=== PATIENT | female | born 1965 | race Caucasian/White ===

== ENCOUNTER → 2016-11-01 | Day surgery (SDC) | payer BC ==
[~2016-11-01] VITALS: Ht 167.6 cm; Wt 64.8 kg
[~2016-11-01] MED LIST: BACITRACIN PWD 50,000 UNITS VIAL As Ordered ONE; BSS with VANC/TOB/EPI for EYE CASES IR ONE; D5W/0.2% SODIUM CHLORIDE 250 ML IV SCH; FISH1000 PO; LACTATED RINGER'S 1000 ML IV ONE; LIDOCAINE 2% W/EPIN INJ 20ML **PRES FREE As Ordered ONE; LIDOCAINE 2% W/EPIN INJ 20ML **PRES FREE XX ONE; LIDOCAINE 4% INJ 5 ML AMP OU ONE; LIDOCAINE 4% INJ 5 ML AMP XX ONE; LISI10TA4 PO; LR 1,000 ML IV SCH; MIDAZOLAM INJ 2 MG/2 ML VIAL (J2250) As Ordered ONE; MULT1TAB10 PO; OFLOXACIN 0.3 % (OCUFLOX) OPTH SOL 5ML XX ONE; ONDANSETRON 4MG/2ML VIAL (J2405) IV PRN; PERCOCET 5MG/325MG TAB PO PRN; POVIDONE-IODINE 5% OPHTH PREP SOL 30ML As Ordered ONE; TOBRADEX OPHTH OINT 3.5 GM As Ordered ONE; TOBRADEX OPHTH OINT 3.5 GM XX ONE; fentaNYL 100 MCG/2 ML INJECTION (J3010) As Ordered ONE; fentaNYL 100 MCG/2 ML INJECTION (J3010) IV PRN; mitoMYcin (FOR OPHTHALMIC USE) 0.3MG/1ML SYRINGE IN NaCl (J7999) As Ordered ONE; mitoMYcin (FOR OPHTHALMIC USE) 0.3MG/1ML SYRINGE IN NaCl (J7999) XX ONE
[2016-11-01 09:20] VITALS: BP 132/72
--- NOTE | 2016-11-01 11:54 | RO ---
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 PROCEDURE: Removal of the corneal and conjunctival fibrovascular growth with Mitomycin C and amniotic membrane grafting. SURGEON: Dr. Agosto PODIATRIC MEDICINE DOCTOR: None. ANESTHESIA: General. COMPLICATIONS: None. DESCRIPTION OF OPERATION: : The patient was brought to the operating room and laid in supine position. The eye was prepped and draped in a sterile fashion for ophthalmic surgery after which a lid speculum was placed. Subconjunctival injection of 2% lidocaine with 1:100,000 epinephrine was then given in the subconjunctival space. About five clock hours of the corneal conjunctival fibrovascular growth was then excised just like a pterygium from the outside towards the center of the cornea. The remaining corneal scarring as scraped using the [place] blade. After hemostasis was obtained, Mitomycin 0.1 mg percent was then placed on the skull bed for about 90 seconds followed by copious irrigation with balanced salt solution. Amniotic membrane was then glued in place with Tisseel glue. TobraDex ointment was applied, eye was patched, and patient was returned to the recovery room in stable condition.
== END | disposition home or self-care (01) ==
LOC: M SDC 06:02
PROVIDERS: ATTEND Ophthalmology
DX: H16.401 Unspecified corneal neovascularization, right eye (principal); I10 Essential (primary) hypertension; L30.9 Dermatitis, unspecified; F17.290 Nicotine dependence, other tobacco product, uncomplicated; Z88.0 Allergy status to penicillin; Z79.899 Other long term (current) drug therapy; Z78.0 Asymptomatic menopausal state
CPT/HCPCS: 65778; 88304; A6024; C1762; J2250; J3010; J7999

== ENCOUNTER → 2017-01-12 | Outpatient (REF) | payer BC ==
[~2017-01-12] MED LIST changes: -BACITRACIN PWD 50,000 UNITS VIAL As Ordered ONE; -BSS with VANC/TOB/EPI for EYE CASES IR ONE; -D5W/0.2% SODIUM CHLORIDE 250 ML IV SCH; -LACTATED RINGER'S 1000 ML IV ONE; -LIDOCAINE 2% W/EPIN INJ 20ML **PRES FREE As Ordered ONE; -LIDOCAINE 2% W/EPIN INJ 20ML **PRES FREE XX ONE; -LIDOCAINE 4% INJ 5 ML AMP OU ONE; -LIDOCAINE 4% INJ 5 ML AMP XX ONE; -LR 1,000 ML IV SCH; -MIDAZOLAM INJ 2 MG/2 ML VIAL (J2250) As Ordered ONE; -OFLOXACIN 0.3 % (OCUFLOX) OPTH SOL 5ML XX ONE; -ONDANSETRON 4MG/2ML VIAL (J2405) IV PRN; -PERCOCET 5MG/325MG TAB PO PRN; -POVIDONE-IODINE 5% OPHTH PREP SOL 30ML As Ordered ONE; -TOBRADEX OPHTH OINT 3.5 GM As Ordered ONE; -TOBRADEX OPHTH OINT 3.5 GM XX ONE; -fentaNYL 100 MCG/2 ML INJECTION (J3010) As Ordered ONE; -fentaNYL 100 MCG/2 ML INJECTION (J3010) IV PRN; -mitoMYcin (FOR OPHTHALMIC USE) 0.3MG/1ML SYRINGE IN NaCl (J7999) As Ordered ONE; -mitoMYcin (FOR OPHTHALMIC USE) 0.3MG/1ML SYRINGE IN NaCl (J7999) XX ONE
== END ==
LOC: M SFHCWAGY 09:13
PROVIDERS: ATTEND Nurse Practitioner Women's Health
DX: Z12.4 Encounter for screening for malignant neoplasm of cervix (principal)

== ENCOUNTER → 2017-01-12 | Outpatient (CLI) | payer BC ==
--- NOTE | 2017-01-12 11:23 | REPMRS ---
Patient History The patient states she had a clinical breast exam in 01/2017. Patient is postmenopausal and had first child at age 38. Family history of pancreatic cancer in mother at age 74. Digital Woman Screen Mammo: January 12, 2017 - Exam #: [id number] Bilateral CC and MLO view(s) were taken. Technologist: Almaz Hernandez, Technologist Prior study comparison: December 15, 2015, digital woman screen mammo performed at [facility]. December 23, 2014, left breast digital mammo diagnostic unilateral, performed at [facility]. FINDINGS: There are scattered fibroglandular densities. There has been no change in the appearance of the mammogram from the prior studies. There is a mild amount of residual fibroglandular tissue which is fairly symmetric. There is no interval development of dominant mass, architectural distortion, or clustered microcalcification suggestive of malignancy. ASSESSMENT: BI-RADS/ACR category 1 mammogram. Negative. Recommendation Routine screening mammogram in 1 year (for women over age 40). This mammogram was interpreted with the aid of an FDA-approved computer-aided dectection system. Electronically Signed By: Balaji Blanco MD 01/12/17 1121
== END ==
LOC: M WHC 09:11
PROVIDERS: ATTEND Nurse Practitioner Women's Health
DX: Z12.31 Encounter for screening mammogram for malignant neoplasm of breast (principal); Z78.0 Asymptomatic menopausal state

== ENCOUNTER 2018-05-17 07:57 | Day surgery (SDC) | payer BC ==
[~2018-05-17 07:57] MED LIST changes: +ACETAMINOPHEN 325 MG TAB PO; -FISH1000 PO; -LISI10TA4 PO; -MULT1TAB10 PO
[2018-05-17] MEDS ORDERED: TROPICAMIDE 1% OPHTH SOLN 2ML As Ordered (08:45)
[2018-05-17] MEDS ORDERED: OFLOXACIN 0.3 % (OCUFLOX) OPTH SOL 5ML As Ordered (08:45)
[2018-05-17] MEDS ORDERED: CYCLOPENTOLATE 2% OPHTH SOLN 2ML BTL As Ordered (08:46)
[2018-05-17] MEDS ORDERED: PHENYLEPHRINE 2.5% OPHTH SOL 2ML As Ordered (08:46)
[2018-05-17] MEDS: OFLOXACIN 0.3 % (OCUFLOX) OPTH SOL 5ML OS (09:06)
[2018-05-17] MEDS: PHENYLEPHRINE 2.5% OPHTH SOL 2ML OS (09:07)
[2018-05-17] MEDS: TROPICAMIDE 1% OPHTH SOLN 2ML OS (09:07)
[2018-05-17] MEDS: CYCLOPENTOLATE 2% OPHTH SOLN 2ML BTL OS (09:07)
[2018-05-17] MEDS: LIDOCAINE 3.5 % 1ML OPHTH TOPICAL GEL OU (09:07)
[2018-05-17] MEDS ORDERED: MIDAZOLAM INJ 2 MG/2 ML VIAL (J2250) As Ordered (11:07)
[2018-05-17] MEDS ORDERED: fentaNYL 100 MCG/2 ML INJECTION (J3010) As Ordered (11:07)
[2018-05-17] MEDS: HEALON DUET (HEALON 10MG/ML 0.55ML & HEALON ENDOCOAT 30MG/ML 0.85ML) As Ordered (11:11)
[2018-05-17] MEDS: MOXIFLOXACIN IN BSS 0.25MG/0.25ML INTRACAMERAL INJ (OR EYE ONLY)(J2280) As Ordered (11:11)
[2018-05-17] MEDS: TRIAMCINOLONE PRES FR 40 MG/ML 1ML(TRIESENCE)(OR EYE ONLY)(J3300 PER 1MG) As Ordered (11:11)
[2018-05-17] MEDS: BSS with VANC/TOB/EPI for EYE CASES IR (11:11)
[2018-05-17] MEDS: POVIDONE-IODINE 5% OPHTH PREP SOL 30ML As Ordered (11:11)
[2018-05-17] MEDS: LIDOCAINE 1% SDV 5 ML VIAL As Ordered (11:11)
[2018-05-17] MEDS: PHENYLEPHRINE HCL 10 % OPHTH. SOL 5ML OS (11:12)
[2018-05-17] MEDS: AcetaZOLAMIDE 500 MG ER CAP PO (11:59)
[2018-05-17] MEDS ORDERED: ONDANSETRON 4MG/2ML VIAL (J2405) IV (12:00)
[2018-05-17] MEDS ORDERED: TRIMETHOBENZAMIDE 300 MG CAP PO (12:00)
== END 2018-05-17 12:17 | disposition home or self-care (01) ==
LOC: M SDC 07:57
DX: H25.9 Unspecified age-related cataract (principal); I10 Essential (primary) hypertension; F17.210 Nicotine dependence, cigarettes, uncomplicated; Z79.899 Other long term (current) drug therapy; Z88.0 Allergy status to penicillin
CPT/HCPCS: 66984

== ENCOUNTER → 2018-06-13 | Outpatient (CLI) | payer BC | LOC: M WHC 14:26 | DX: Z12.31 Encounter for screening mammogram for malignant neoplasm of breast (principal) | CPT/HCPCS: 77067 ==

== ENCOUNTER 2018-09-26 07:40 | Emergency (ER) | payer BC ==
[~2018-09-26] VITALS: Ht 165.1 cm; Wt 63.4 kg
[~2018-09-26 07:40] MED LIST changes: -ACETAMINOPHEN 325 MG TAB PO; +FISH1000 PO; +FISH5CAP PO; +LISI10TA4 PO; +MULT1TAB10 PO
[2018-09-26] MEDS ORDERED: PEPT262T2 PO (07:51)
[2018-09-26] MEDS ORDERED: IBUP-1114 PO (07:51)
[2018-09-26] MEDS ORDERED: ASPIRIN 81 MG CHEW TABLET PO ONE (08:15)
[2018-09-26] MEDS ORDERED: METOPROLOL TART 25 MG TABLET PO ONE (08:15)
[2018-09-26] MEDS: NITROGLYCERIN 0.4 MG SUBL TABLET SL PRN ×2 (08:20→08:48)
[2018-09-26 08:23] LABS: BASO # 0.1 10^3/uL (0.0-0.2); BASO % 0.3 % (0.0-1.0); EOS % 0.1 % (0.0-3.0); HEMATOCRIT 45.2 % (36.0-47.0); HEMOGLOBIN 15.1 g/dl (12.0-15.5); MEAN CORPUSCULAR HEMOGLOBIN 30.4 pg (27.0-33.0); MEAN CORPUSCULAR HGB CONC 33.4 g/dl (32.0-36.5); MEAN CORPUSCULAR VOLUME 91.1 fl (80.0-96.0); MONO # 0.8 10^3/uL (0.0-0.8); MONO % 5.2 % (0.0-5.0); NEUTROPHILS # 12.5 10^3/uL (1.8-7.7); NEUTROPHILS % 80.8 % (36.0-66.0); PLATELET COUNT, AUTOMATED 279 10^3/uL (150-450); RED BLOOD COUNT 4.96 10^6/uL (4.00-5.40); WHITE BLOOD COUNT 15.5 10^3/uL (4.0-10.0)
--- NOTE | 2018-09-26 08:46 | REP ---
Portable chest x-ray: Single view. History: Chest pain. Comparison study: May 09, 2012. Findings: EKG monitoring electrodes overlie the chest. Lungs are symmetrically aerated and clear. Pleural angles are sharp. Heart is not enlarged. Pulmonary vasculature is not increased. Impression: No active disease. Electronically Signed by Jasper Rodriguez MD 09/26/2018 08:38 A
[2018-09-26 08:53] LABS: ALBUMIN 3.9 GM/DL (3.2-5.2); ALT/SGPT 19 U/L (12-78); BILIRUBIN,DIRECT < 0.1 MG/DL (0.0-0.2); BILIRUBIN,TOTAL 0.3 MG/DL (0.2-1.0); C REACTIVE PROTEIN QUANTITATIV 0.48 MG/DL (0.00-0.30); LIPASE 82 U/L (73-393); TOTAL PROTEIN 7.3 GM/DL (6.4-8.2)
[2018-09-26 09:00] LABS: BLOOD UREA NITROGEN 8 MG/DL (7-18); CALCIUM LEVEL 9.7 MG/DL (8.5-10.1); CARBON DIOXIDE LEVEL 27 MEQ/L (21-32); CHLORIDE LEVEL 105 MEQ/L (98-107); CPK CREATINE PHOSPHOKINASE 440 U/L (26-192); CREATININE FOR GFR 0.89 MG/DL (0.55-1.30); GLOMERULAR FILTRATION RATE > 60.0 (>51); GLUCOSE, FASTING 117 MG/DL (70-100); MB/CK RELATIVE INDEX 14.43 (< OR =4); POTASSIUM SERUM 3.7 MEQ/L (3.5-5.1); SODIUM LEVEL 137 MEQ/L (136-145); TROPONIN I 9.25 NG/ML (< 0.10)
[2018-09-26] MEDS ORDERED: HEPARIN DRIP 25,000 UNITS in APPROPRIATE DILUENT 1 EA IV SCH (09:23)
[2018-09-26] MEDS ORDERED: NITROGLYCERIN 2% OINT 1 GM *U/D* PKT TOP ONE (09:30)
[2018-09-26] MEDS ORDERED: CLOPIDOGREL 300 MG TAB (PLAVIX) PO ONE (09:30)
[2018-09-26] MEDS ORDERED: HEPARIN SOD (PORCINE) 5000 UNITS/ML VIAL IV ONE ×2 (09:30→09:45)
[2018-09-26 09:37] VITALS: BP 122/86
[2018-09-26 09:43] LABS: INR 0.94; PROTHROMBIN TIME 12.7 SECONDS (12.1-14.4)
[2018-09-26 09:44] LABS: PARTIAL THROMBOPLASTIN TIME 32.5 SECONDS (25.4-37.6)
[2018-09-26 09:58] VITALS: BP 126/90
--- NOTE | 2018-09-27 17:27 | ECGEPIP ---
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
--- NOTE | 2018-09-27 17:28 | ECGEPIP ---
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
--- NOTE | 2018-09-27 17:30 | ECGEPIP ---
Stationary ECG Study [facility] - ED Test Date: 2018-09-26 Pat Name: FLORINDA SALDIVAR Department: Room: - Gender: F Syruper: TC : 1965 Requested By: Jose Sanchez Order Number: [id number] Reading MD: Noelle Eagle Measurements Intervals [place] Rate: 87 P: 67 ID: 132 QRS: 14 QRSD: 92 T: 53 QT: 391 QTc: 472 Interpretive Statements SINUS RHYTHM ST ELEVATION SEEN 8:13 CLINICAL CORRELATION Electronically Signed On 09-27-2018 17:29:40 EST by Noelle Eagle
== END 2018-09-26 10:01 | disposition short-term general hospital (02) ==
LOC: M ED 07:40
DX: I21.09 ST elevation (STEMI) myocardial infarction involving other coronary artery of anterior wall (principal); R00.0 Tachycardia, unspecified; I10 Essential (primary) hypertension; L30.9 Dermatitis, unspecified; Z88.0 Allergy status to penicillin; Z79.899 Other long term (current) drug therapy

== ENCOUNTER 2018-10-19 15:54 | Emergency (ER) | payer BC ==
[~2018-10-19] VITALS: Ht 167.6 cm; Wt 63.6 kg
[~2018-10-19 15:54] MED LIST changes: +IBUP-1114 PO; +PEPT262T2 PO
[2018-10-19] MEDS ORDERED: NITR0.4S14 (16:02)
[2018-10-19] MEDS ORDERED: CLOP75TA2 (16:02)
[2018-10-19] MEDS ORDERED: ATOR40TA75 (16:02)
[2018-10-19] MEDS ORDERED: LISI-542 (16:02)
[2018-10-19] MEDS ORDERED: METO1TAB87 (16:02)
[2018-10-19 16:45] LABS: BASO # 0.1 10^3/uL (0.0-0.2); BASO % 0.7 % (0.0-1.0); EOS # 0.1 10^3/uL (0.0-0.50); EOS % 1.6 % (0.0-3.0); HEMATOCRIT 41.8 % (36.0-47.0); LYMPH # 2.3 10^3/uL (1.5-4.5); LYMPH % 27.5 % (24.0-44.0); MEAN CORPUSCULAR HEMOGLOBIN 30.4 pg (27.0-33.0); MEAN CORPUSCULAR HGB CONC 33.5 g/dl (32.0-36.5); MEAN CORPUSCULAR VOLUME 90.9 fl (80.0-96.0); MONO # 0.5 10^3/uL (0.0-0.8); MONO % 6.1 % (0.0-5.0); NEUTROPHILS # 5.3 10^3/uL (1.8-7.7); NEUTROPHILS % 63.7 % (36.0-66.0); PLATELET COUNT, AUTOMATED 258 10^3/uL (150-450); WHITE BLOOD COUNT 8.3 10^3/uL (4.0-10.0)
[2018-10-19 16:52] LABS: INR 1.11; PARTIAL THROMBOPLASTIN TIME 31.8 SECONDS (25.4-37.6); PROTHROMBIN TIME 14.5 SECONDS (12.1-14.4)
[2018-10-19 17:05] LABS: ALBUMIN 3.9 GM/DL (3.2-5.2); ALT/SGPT 14 U/L (12-78); BILIRUBIN,DIRECT 0.2 MG/DL (0.0-0.2); BILIRUBIN,TOTAL 0.6 MG/DL (0.2-1.0); BLOOD UREA NITROGEN 11 MG/DL (7-18); C REACTIVE PROTEIN QUANTITATIV 0.62 MG/DL (0.00-0.30); CALCIUM LEVEL 9.5 MG/DL (8.5-10.1); CARBON DIOXIDE LEVEL 30 MEQ/L (21-32); CHLORIDE LEVEL 105 MEQ/L (98-107); CK-MB VALUE MASS < 1.0 NG/ML (<3.6); CPK CREATINE PHOSPHOKINASE 46 U/L (26-192); CREATININE FOR GFR 1.06 MG/DL (0.55-1.30); FREE T4 1.25 NG/DL (0.76-1.46); GLOMERULAR FILTRATION RATE 57.3 (>51); GLUCOSE, FASTING 95 MG/DL (70-100); MB/CK RELATIVE INDEX 2.17 (< OR =4); NT-PRO BNP 536 PG/ML (<125); SODIUM LEVEL 141 MEQ/L (136-145); THYROID STIMULATING HORMONE 0.761 uIU/ML (0.358-3.740); TOTAL PROTEIN 7.1 GM/DL (6.4-8.2); TROPONIN I < 0.02 NG/ML (< 0.10)
[2018-10-19 17:15] LABS: ERYTHROCYTE SEDIMENTATION RATE 6 mm/hr (0-30)
[2018-10-19] MEDS ORDERED: CARA1TAB6 PO (17:25)
[2018-10-19] MEDS ORDERED: OMEP40CA2 PO (17:25)
--- NOTE | 2018-10-19 17:28 | REP ---
Portable chest, 04:52 p.m., single AP view, the patient upright: Comparison is 09/26/2018. The lung hyde are clear. The cardiac size is normal. The emily, mediastinum, and skeletal structures are unremarkable. Impression: Negative portable chest. There is no interval change. Electronically Signed by Balaji Guaman MD 10/19/2018 05:19 P
[2018-10-19] MEDS ORDERED: SUCRALFATE 1 GM TAB PO ONE (17:30)
[2018-10-19 18:59] VITALS: BP 148/88
--- NOTE | 2018-10-20 00:51 | ECGEPIP ---
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
--- NOTE | 2018-10-20 06:58 | ECHO ---
DATE OF PROCEDURE: 10/19/2018 REFERRING PHYSICIAN: Dr. Pham INDICATION: Abnormal ECG, chest pain. Study was performed in emergency room. DIMENSIONS: IVS 0.8 LV 5.5 LVPW 1.0 Aorta 2.9 LA 3.2 Mitral E wave velocity 80, A-wave 91 E prime septal 6.1, E-prime lateral 6.9. Left atrial volume index 24 IVC 2.0 FINDINGS: The study is of good technical quality. Left ventricle is normal size and has normal contractility. I cannot completely rule out very subtle apical wall motion abnormality but it seems unlikely. Estimated LVEF 60-65%. Right ventricle appears normal. Both atria appear normal. Aortic, mitral and tricuspid valves appear grossly normal. Pulmonic valve was not well seen. Both atria appear normal. No pericardial effusion is noted. Inferior vena cava is on upper limits of normal size but collapses appropriately with respiration. Aortic root, aortic arch and visualized segment of abdominal aorta appear normal. Doppler interrogation reveals no aortic stenosis or insufficiency. There is trace mitral insufficiency. There is no significant tricuspid insufficiency. Mitral inflow pattern and tissue Doppler imaging of mitral annulus, together with left atrial volume index indicate grade 1 diastolic dysfunction. CONCLUSIONS: 1. Study is of good technical quality. 2. Normal LV size and systolic function, grade 1 diastolic dysfunction. 3. No significant valvular disease. 4. Normal or mildly elevated central venous pressure. 5. Unable to estimate pulmonary artery pressure but no signs to suggest pulmonary hypertension. COMMENT: SBE prophylaxis is not recommended. The results of the study was communicated with Dr. Pham emergency room. SOFYA
== END 2018-10-19 19:00 | disposition home or self-care (01) ==
LOC: M ED 15:54
DX: K21.0 Gastro-esophageal reflux disease with esophagitis (principal); K44.9 Diaphragmatic hernia without obstruction or gangrene; I11.9 Hypertensive heart disease without heart failure; Z79.899 Other long term (current) drug therapy; Z88.0 Allergy status to penicillin

== ENCOUNTER → 2020-02-16 | Outpatient (REF) | payer BC ==
[~2020-02-16] MED LIST changes: +ASPI81TA26 PO; +ATOR40TA75 PO; +CARA1TAB6 PO; +CLOP75TA2 PO; +LISI-542 PO; +METO1TAB87 PO; +MULTCAP PO; +NITR0.4S14 SL; +OMEP40CA97 PO
[2020-02-16 18:45] LABS: APPEARANCE, URINE CLOUDY (CLEAR); BACTERIA, URINE AUTO 1+ (NEGATIVE); BILIRUBIN, URINE AUTO NEGATIVE (NEGATIVE); BLOOD, URINE BLOOD 3+ (NEGATIVE); COLOR, URINE RED (YELLOW); GLUCOSE, URINE (UA) AUTO NEGATIVE (NEGATIVE); KETONE, URINE AUTO NEGATIVE (NEGATIVE); LEUKOCYTE ESTERASE, URINE AUTO NEGATIVE (NEGATIVE); NITRITE, URINE AUTO NEGATIVE (NEGATIVE); PROTEIN, URINE AUTO 2+ mg/dL (NEGATIVE); RBC, URINE AUTO TNTC /HPF (0-3); SPECIFIC GRAVITY URINE AUTO 1.015 (1.002-1.035); SQUAMOUS EPITHELIAL CELL UR AU 7 /HPF (0-6); UROBILINOGEN, URINE AUTO 0.2 mg/dL (0.0-2.0); WBC, URINE AUTO 9 /HPF (0-3)
== END ==
LOC: M LAB 18:06
PROVIDERS: ATTEND Physician Assistant Medical
DX: N39.0 Urinary tract infection, site not specified (principal)

== ENCOUNTER → 2020-03-18 | Outpatient (CLI) | payer BC ==
--- NOTE | 2020-03-18 09:37 | REPMRS ---
Patient History The patient states she had a clinical breast exam in February 2020. Family history of pancreatic cancer at age 74 in mother. 3D TOMOSYNTHESIS WAS PERFORMED. [facility]%. VOLPARA DENSITY B. Digital Woman Screen Mammo: March 18, 2020 - Exam #: [id number] Bilateral CC and MLO view(s) were taken. Technologist: Tierra Mendez, Technologist Prior study comparison: June 13, 2018, bilateral digital woman screen mammo performed at [facility]. January 12, 2017, digital woman screen mammo performed at [facility]. FINDINGS: There are scattered fibroglandular densities. There has been no change in the appearance of the mammogram from the prior studies. There is a mild amount of residual fibroglandular tissue which is fairly symmetric. There is no interval development of dominant mass, architectural distortion, or clustered microcalcification suggestive of malignancy. Assessment: BI-RADS/ACR category 1 mammogram. Negative Mammogram. Recommendation Routine screening mammogram in 1 year (for women over age 40). This mammogram was interpreted with the aid of an FDA-approved computer-aided dectection system. Electronically Signed By: Balaji Blanco MD 03/18/20 0937
== END ==
LOC: M WHC 07:53
PROVIDERS: ATTEND Nurse Practitioner Women's Health
DX: Z12.31 Encounter for screening mammogram for malignant neoplasm of breast (principal)

== ENCOUNTER → 2024-01-10 | Outpatient (REF) | payer OTHER ==
[~2024-01-10] MED LIST changes: -LISI-542 PO; +LISI10TA22 PO; -LISI10TA4 PO; +LISI5TAB11 PO; +OMEP40CA4 PO; -OMEP40CA97 PO
[2024-01-10 23:04] LABS: APPEARANCE, URINE CLEAR (CLEAR); BACTERIA, URINE AUTO NEGATIVE (NEGATIVE); BILIRUBIN, URINE AUTO NEGATIVE (NEGATIVE); BLOOD, URINE BLOOD 3+ (NEGATIVE); COLOR, URINE STRAW (YELLOW); GLUCOSE, URINE (UA) AUTO NEGATIVE (NEGATIVE); KETONE, URINE AUTO NEGATIVE (NEGATIVE); LEUKOCYTE ESTERASE, URINE AUTO NEGATIVE (NEGATIVE); NITRITE, URINE AUTO NEGATIVE (NEGATIVE); PROTEIN, URINE AUTO NEGATIVE (NEGATIVE); RBC, URINE AUTO 0 /HPF (0-3); SPECIFIC GRAVITY URINE AUTO 1.001 (1.002-1.035); SQUAMOUS EPITHELIAL CELL UR AU 0 /HPF (0-6); UROBILINOGEN, URINE AUTO 0.2 mg/dL (0.0-2.0); WBC, URINE AUTO 0 /HPF (0-3)
== END ==
LOC: M LAB REF 22:28
PROVIDERS: ATTEND Physician Assistant Medical
DX: N39.0 Urinary tract infection, site not specified (principal)

== ENCOUNTER → 2024-06-06 | Outpatient (CLI) | payer OTHER | LOC: M RAD 07:30 | PROVIDERS: ATTEND Nurse Practitioner Family | DX: I25.10 Atherosclerotic heart disease of native coronary artery without angina pectoris (principal) ==